=== PATIENT | female | born 2005 | race Caucasian/White ===

== ENCOUNTER 2024-02-18 12:28 | Emergency (ER) | payer MEDICAID ==
[~2024-02-18] VITALS: Ht 160 cm; Wt 59.1 kg
[2024-02-18 12:34] VITALS: TEMP 98.3
[2024-02-18 15:31] LABS: URINE APPEARANCE CLEAR (CLEAR/HAZY); URINE BLOOD 2+ (NEGATIVE); URINE COLOR YELLOW (YELLOW); URINE GLUCOSE NEGATIVE (NEGATIVE); URINE KETONE NEGATIVE (NEGATIVE); URINE NITRATE NEGATIVE (NEGATIVE); URINE PROTEIN(semi-quant) NEGATIVE (NEGATIVE); URINE UROBILINOGEN 0.2 E.U/dL (0.2-1.0)
[2024-02-18 15:33] LABS: COLLECTION METHOD CLEAN CATCH
[2024-02-18 17:45] VITALS: BP 121/86; PULSE 98
== END 2024-02-18 17:45 | disposition home or self-care (01) ==
LOC: COL.ER 12:28
PROVIDERS: Nurse Practitioner
DX: O20.0 Threatened abortion (principal); Z3A.11 11 weeks gestation of pregnancy

== ENCOUNTER → 2024-02-19 | Outpatient (CLI) | payer MEDICAID | LOC: COL.RAD 05:53 | DX: O20.0 Threatened abortion (principal); Z3A.08 8 weeks gestation of pregnancy ==